=== PATIENT | male | born 1950 | race Hispanic/Latino ===

== ENCOUNTER 2018-11-04 17:16 | Inpatient (IN) | payer BC ==
[2018-11-04] MEDS ORDERED: Mag-Al 1200 mg/1200 mg/30 ML UDCUP ONE (17:42)
[2018-11-04] MEDS ORDERED: Lidocaine Viscous Sol 2% 15 ml UD Cup ONE (17:42)
[2018-11-04 18:05] LABS: #Basophils 0.1 thou/uL (0.0-0.2); #Eosinphils 0.3 thou/uL (0.0-0.7); #Lymphocytes 2.2 thou/uL (1.20-3.40); #Monocytes 0.6 thou/uL (0.11-0.59); #Neutrophils 5.3 thou/uL (1.40-6.50); %Basophils 0.9 % (0.0-1.0); %Eosinophils 3.6 % (0.0-10.0); %Lymphocytes 26.1 % (21.0-51.0); %Monocytes 6.8 % (0.0-10.0); %Neutrophils 62.7 % (42.0-75.0); Mean Corpuscular HGB CONC 34.6 g/dL (32.0-36.0); Mean Corpuscular Hemoglobin 31.4 pg (27.0-31.0); Mean Corpuscular Volume 90.7 fL (78.0-98.0); Mean Platelet Volume 8.2 fL (7.4-10.4); Platelet Count 214 thou/uL (130-400); RBC Distribution Width 12.4 % (11.5-14.5); Red Blood Cell (RBC) Count 3.81 mill/uL (4.70-6.10); White Blood Cell (WBC) Count 8.4 thou/uL (4.8-10.8)
--- NOTE | 2018-11-04 18:10 | RAD ---
PORTABLE CHEST: 11/04/2018 PROVIDED CLINICAL HISTORY: Chest pain. FINDINGS: The cardiac silhouette is within normal limits. Vascular calcification involves the aortic arch. No focal consolidation, pleural fluid, or pneumothorax apparent. IMPRESSION: No evidence for an acute cardiopulmonary process. POS: TERE
[2018-11-04 18:19] LABS: ALT (SGPT) 15 U/L (8-55); AST (SGOT) 16 U/L (5-34); Albumin 3.7 g/dL (3.4-4.8); Alkaline Phosphatase 73 U/L (40-150); Anion Gap 15 mmol/L (10-20); BUN (Urea Nitrogen) 25 mg/dL (8.4-25.7); Bilirubin, Total 0.3 mg/dL (0.2-1.2); Calc. Creatinine Clearance 0 mL/min (70-130); Calcium 9.1 mg/dL (7.8-10.44); Carbon Dioxide 18 mmol/L (23-31); Chloride 106 mmol/L (98-107); Estimated GFR-MDRD 27; Globulin 3.2 g/dL (2.4-3.5); Glucose 186 mg/dL (80-115); Lipase 28 U/L (8-78); Potassium 3.8 mmol/L (3.5-5.1); Protein, Total 6.9 g/dL (5.8-8.1); Sodium 135 mmol/L (136-145)
[2018-11-04 20:06] LABS: Troponin I 0.094 ng/mL (< 0.028)
[2018-11-04 22:16] LABS: Troponin I 0.583 ng/mL (< 0.028)
[2018-11-04] MEDS ORDERED: Nitroglycerin 0.4 MG TAB (25 Tab Bottle) SL PRN (23:23)
[2018-11-04] MEDS ORDERED: Acetaminophen 325 MG TAB PO PRN (23:25)
[2018-11-04] MEDS ORDERED: Heparin 5,000 UNITS/ML VIAL SC SCH (23:30)
[2018-11-04] MEDS ORDERED: Dextrose 50% Abboject 50 ML SYRINGE SLOW IVP PRN (23:35)
[2018-11-04] MEDS ORDERED: Dextrose 5% in Water 1,000 ML IV PRN (23:35)
[2018-11-04] MEDS ORDERED: HumaLOG 300 UNITS/3 ML VIAL SC PRN (23:35)
[2018-11-05] MEDS ORDERED: Nitroglycerin 2% Ointment 1 INCH/1 GM Packet ONE ×2 (01:21→14:36)
[2018-11-05] MEDS: Nitroglycerin 2% Ointment 1 INCH/1 GM Packet TOP SCH ×2 (01:30→14:41)
--- NOTE | 2018-11-05 03:41 | HP ---
CHIEF COMPLAINT: Chest pain. HISTORY OF PRESENT ILLNESS: This patient is a 67-year-old male with a history of some chronic kidney disease, who was at work today, he is finishing waiting check at around 3 p.m. when he had the onset of some mild chest discomfort. The patient went home and started cooking, and his pain became significantly worse. He described it as central parasternal chest pain. He states that it increased to 10/10. His reported that he looked clammy. He reported shortness of breath, some generalized diaphoresis. Denied nausea or vomiting, and he described the pain as a squeezing sensation. There was no specific radiation. He was actually fairly resistant to his calling an ambulance, but ultimately relented. The patient received aspirin 81 mg at home. Subsequently, received 3 more in the ambulance en route. He also received sublingual nitroglycerin with no relief. However, once he arrived in the emergency department, he received a GI cocktail and states that his pain subsequently went away and is currently at zero. REVIEW OF SYSTEMS: The patient has some urinary frequency and nocturia x2-3, but no dysuria. He also has some modest deliberate weight loss. He and his argue over whether he has chronic diarrhea or not. All other systems were reviewed. All pertinent positives and negatives noted in the history of present illness. PAST MEDICAL HISTORY: Notable for hypothyroidism, hyperlipidemia, hypertension, chronic kidney disease stage 3, history of hepatitis C which was treated and apparently resolved. PAST SURGICAL HISTORY: None. SOCIAL HISTORY: The patient reports that he smokes 1 pack of cigarettes q.2 weeks. He has 1/2 to 1 beer per day. Denies drugs. He is . He is full code and his is his surrogate decision maker. FAMILY HISTORY: Mother had diabetes. Father at 94 with no major medical problems. ALLERGIES: NONE. MEDICATIONS: 1. Hydralazine 100 mg p.o. t.i.d. 2. Amlodipine 10 mg p.o. daily. 3. Metoprolol 100 mg b.i.d. 4. Levothyroxine 75 mcg daily. 5. Atorvastatin 40 mg daily. PHYSICAL EXAMINATION: VITAL SIGNS: BP 121/65, pulse 74, respirations 14, O2 saturation 95% on room air. GENERAL APPEARANCE: Age-appropriate male. He is in no distress. He is awake, alert, oriented, pleasant, and cooperative. HEENT: PERRL. No OP lesions. NECK: Supple and symmetric with no lymphadenopathy, JVD, or carotid bruits. HEART: Regular rate and rhythm without murmurs, gallops, or rubs. LUNGS: Clear to auscultation bilaterally with good chest wall expansion and air exchange. ABDOMEN: Soft, nontender, and nondistended. Positive bowel sounds. No masses. No organomegaly. EXTREMITIES: No cyanosis, clubbing, or edema. NEUROLOGIC: The patient is intact. He is normally cognitive and moves all extremities spontaneously with no evidence of focal deficits. PSYCHIATRIC: The patient has normal affect and behavior. SKIN: Normal turgor, warm, and dry. LABORATORY DATA: White count 8.4, hemoglobin 12.0, platelets 214. Sodium 135, potassium 3.8, chloride 106, CO2 of 18, BUN 25, creatinine 2.46, glucose 186, calcium 9.1, ALT is 16, ALT is 15. Troponin initially 0.01, subsequent 0.094, 3rd is 0.583. Albumin 3.7. Chest x-ray is clear. EKG shows some evidence of inferior Q-waves with no ischemic changes. He is in sinus rhythm at 71 beats per minute. IMPRESSION AND PLAN: 1. Acute non ST-segment elevation myocardial infarction. The patient had fairly classic symptoms and his troponins are trending upward. We will give a dose of heparin given his renal function. We will keep him n.p.o. after midnight. Keep him on telemetry. Consult Cardiology. He has had adequate dosing of the aspirin at this point. His pain is currently completely resolved. 2. Chronic kidney disease stage 3. His current creatinine is at his baseline. 3. Hyperglycemia. The patient has no history of diabetes. He has multiple blood sugars in the computer going back to 2012, they were all slightly elevated. However, the 186 now is the highest that he has had recorded. We will order serial Accu-Cheks q.a.c. and at bedtime with sliding scale insulin as needed. 4. Hypertension. Continue with the hydralazine, amlodipine, and metoprolol. 5. Hypothyroidism. Continue with the levothyroxine 75 mcg daily. 6. Hyperlipidemia. Continue with atorvastatin. Job ID: [id number]
[2018-11-05 03:55] LABS: Anion Gap 12 mmol/L (10-20); BUN (Urea Nitrogen) 25 mg/dL (8.4-25.7); Calc. Creatinine Clearance 40 mL/min (70-130); Calcium 9.2 mg/dL (7.8-10.44); Carbon Dioxide 21 mmol/L (23-31); Cardiac Risk 4.9 (Less than 4.5); Chloride 109 mmol/L (98-107); Cholesterol 187 mg/dl (< 200 Desired); Estimated GFR-MDRD 31; Glucose 132 mg/dL (80-115); HDL Cholesterol 38 mg/dL (>60 Neg Risk); LDL Cholesterol, Calculated 107 mg/dL; Potassium 4.3 mmol/L (3.5-5.1); Sodium 138 mmol/L (136-145); Triglycerides 212 mg/dL (Less than 150)
[2018-11-05] MEDS: Levothyroxine Sodium 75 MCG TAB PO SCH (05:48)
[2018-11-05] MEDS ORDERED: hydrALAZINE 25 MG TAB ONE (09:00)
[2018-11-05] MEDS: Amlodipine 10 MG TAB PO SCH (09:11)
[2018-11-05] MEDS: hydrALAZINE 25 MG TAB PO SCH ×3 (09:12→21:17)
[2018-11-05] MEDS: Metoprolol Tartrate 100 MG TAB PO SCH ×2 (09:13→21:18)
[2018-11-05 13:12] LABS: CKMB 89.6 ng/mL (0-6.6)
--- NOTE | 2018-11-05 13:12 | PDOC.PN ---
- Subjective Encounter Start Date: 11/05/18 Encounter Start Time: 11:50 -: old records requested/rev Pt seen and exmained, chart reviewe din its entirety, this is my first visit iwth this patient follow up for possible NSTEMI, CP. no more symptos, no trop since admit, pt NPO waiting for cards eval. NO F/C, no N/V/D/C, no CP, no SOB all systems reviewed and neg x as above - Objective Resuscitation Status - Order Detail: 11/04/18 23:25 Resuscitation Status Routine Resuscitation Status: FULL: Full Resuscitation MAR Reviewed: Yes Vital Signs & Weight: Vital Signs (12 hours) Temp Pulse Resp BP BP Pulse Ox 11/05/18 11:34 98 F 59 L 14 133/74 97 11/05/18 09:12 65 120/66 11/05/18 09:11 76 120/66 11/05/18 05:50 98.3 F 63 22 H 156/82 H 98 11/05/18 04:23 98.2 F 66 19 137/75 96 11/05/18 04:00 97 Weight Weight 184 lb Result Diagrams: 11/04/18 17:51 11/05/18 03:26 Additional Labs: Accuchecks 11/05/18 11/05/18 11:29 05:51 POC Glucose 109 102 Radiology Reviewed by me: Yes Phys Exam - Physical Examination Constitutional: NAD HEENT: PERRLA, moist MMs, sclera anicteric, oral pharynx no lesions Neck: no nodes, no JVD, supple, full ROM Respiratory: no wheezing, no rales, no rhonchi, clear to auscultation bilateral Cardiovascular: RRR, no significant murmur, no rub Gastrointestinal: soft, non-tender, no distention, positive bowel sounds Musculoskeletal: no edema, pulses present Neurological: non-focal, normal sensation, moves all 4 limbs Lymphatic: no nodes Psychiatric: normal affect, A&O x 3 Skin: no rash, normal turgor, cap refill <2 seconds Dx/Plan (1) NSTEMI (non-ST elevated myocardial infarction) Code(s): I21.4 - NON-ST ELEVATION (NSTEMI) MYOCARDIAL INFARCTION Status: Acute Comment: trop up to 30. start heparin gtt due to CKD, follow up on card. echo ordered (2) DM2 (diabetes mellitus, type 2) Status: Acute Qualifiers: Diabetes mellitus long term care pharmacist insulin use: without usp use Diabetes mellitus complication status: with circulatory complication Diabetes mellitus complication detail: with other circulatory complications Qualified Code(s): E11.59 - Type 2 diabetes mellitus with other circulatory complications (3) HTN (hypertension) Code(s): I10 - ESSENTIAL (PRIMARY) HYPERTENSION Status: Chronic Qualifiers: Hypertension type: essential hypertension Qualified Code(s): I10 - Essential (primary) hypertension (4) HLD (hyperlipidemia) Code(s): E78.5 - HYPERLIPIDEMIA, UNSPECIFIED Status: Chronic Qualifiers: Hyperlipidemia type: unspecified Qualified Code(s): E78.5 - Hyperlipidemia , unspecified (5) CKD (chronic kidney disease), stage III Code(s): N18.3 - CHRONIC KIDNEY DISEASE, STAGE 3 (MODERATE) Status: Chronic (6) Hypothyroidism Code(s): E03.9 - HYPOTHYROIDISM, UNSPECIFIED Status: Chronic Qualifiers: Hypothyroidism type: unspecified Qualified Code(s): E03.9 - Hypothyroidism , unspecified - Plan cont current plan of care, plan discussed w/ family * . keep NPO, heparin gtt, echo, follow up on cards. hard to cath due to CKD and Cr 2.1
[2018-11-05] MEDS ORDERED: Heparin 25,000 units/D5W 0 ML ONE (13:45)
[2018-11-05] MEDS ORDERED: Heparin 1,000 UNITS/ML VIAL ONE (13:45)
[2018-11-05] MEDS ORDERED: Heparin 25,000 units/D5W 500 ML ONE (13:51)
[2018-11-05 14:12] LABS: INR-International Normal Ratio 1.1; PTT 27.6 SEC (22.9-36.1); Prothrombin Time 13.9 SEC (12.0-14.7)
[2018-11-05 18:14] VITALS: BMI 27.7
[2018-11-05] MEDS: Atorvastatin Calcium 40 MG TAB PO SCH (21:17)
--- NOTE | 2018-11-05 21:29 | CON ---
DATE OF CONSULTATION: REASON FOR CONSULTATION: Elevated troponin. Dr. Flynn is a provider. HISTORY OF PRESENT ILLNESS: Mr. Estrella is a pleasant 67-year-old gentleman, who has not been seen or evaluated by Cardiology in the past. He has a history of hypertension and borderline diabetes. He presented with chest pain that began as mild. It then was severe. He states the pain lasted for a total of 4 hours. It began yesterday at 3:00 p.m. and subsided completely by 9:00 p.m. yesterday evening. No previous history of underlying coronary artery disease. He does have a history of chronic renal insufficiency. PAST MEDICAL HISTORY: As described above including hyperlipidemia, previous history of hepatitis C. SOCIAL HISTORY: No current tobacco use. Positive alcohol use. No current drug use. He is currently . ALLERGIES: NONE. MEDICATIONS: 1. Hydralazine. 2. Amlodipine. 3. Metoprolol. 4. Levothyroxine. 5. Atorvastatin. REVIEW OF SYSTEMS: A 10-point review of systems is reviewed and as above, otherwise negative. PHYSICAL EXAMINATION: GENERAL: The patient is a pleasant male, who is in no acute distress. The patient appears their stated age. VITAL SIGNS: Blood pressure 133/74, pulse 89, temperature 98. NEUROLOGIC: The patient is alert and oriented x3 with no focal neurologic deficits. HEENT: Sclerae without icterus. Mouth has moist mucous membranes with normal pallor. NECK: No JVD. Carotid upstroke brisk. No bruits bilaterally. LUNGS: Clear to auscultation with unlabored respirations. BACK: No scoliosis or kyphosis. CARDIAC: Regular rate and rhythm with normal S1 and S2. No S3 or S4 noted. No significant rubs, murmurs, thrills, or gallops noted throughout the precordium. PMI is not displaced. There is no parasternal heave. ABDOMEN: Soft, nontender, nondistended. No peritoneal signs present. No hepatosplenomegaly. No abnormal striae. EXTREMITIES: 2+ femoral and 2+ dorsalis pedis pulses. No cyanosis, clubbing, or edema. SKIN: No gross abnormalities. Insert a new patient. PERTINENT LABORATORY DATA: Hemoglobin 12.0, creatinine 2.17 with a GFR of 31. CK-MB of 89 with a peak troponin of 36. IMAGING STUDIES: EKG shows normal sinus rhythm with nonspecific ST-T wave changes. IMPRESSION: 1. Unstable angina. 2. Chronic kidney disease. 3. Hypertension. 4. Hyperlipidemia. RECOMMENDATIONS: At this point, Mr. Estrella has been chest pain-free for 12 hours. Heparin IV has been started. At this point, I would recommend coronary angiography with a possible PCI. I discussed proceeding in full detail with Mr. Estrella. Risks include, but not limited to consent. I also discussed drug-coated versus [id number] stent placement. There were no contraindications to proceed if needed. I also discussed the risks of contrast nephropathy. We will hydrate the patient with IV fluids overnight. There is a risk of contrast nephropathy, but also risk of repeat [place]. At this point, I would like to think about his options. He will let us know if he would like to proceed. Otherwise, continue beta-richard therapy and statin treatment in addition to IV heparin and IV fluids. Job ID: [id number]
[2018-11-05] MEDS ORDERED: Heparin 25,000 units/D5W 500 ML IV SCH (22:00)
[2018-11-05] MEDS ORDERED: Heparin 10,000 UNITS/ 10 ML VIAL SLOW IVP SCH (22:00)
[2018-11-05] MEDS ORDERED: Communication Order-Pharmacy FS SCH (22:15)
[2018-11-06] MEDS: Sodium Chloride 0.9% 1,000 ML IV SCH ×4 (00:44→20:21)
[2018-11-06] MEDS: Nitroglycerin 2% Ointment 1 INCH/1 GM Packet TOP SCH ×2 (00:44→13:10)
[2018-11-06 04:25] LABS: Critical Call Chem Troponin I RESULT DECREASING; Troponin I 24.352 ng/mL (< 0.028)
[2018-11-06] MEDS: hydrALAZINE 25 MG TAB PO SCH ×3 (05:59→20:19)
[2018-11-06] MEDS: Metoprolol Tartrate 100 MG TAB PO SCH ×2 (06:01→20:20)
[2018-11-06] MEDS: Levothyroxine Sodium 75 MCG TAB PO SCH (06:01)
[2018-11-06] MEDS: Amlodipine 10 MG TAB PO SCH (06:02)
[2018-11-06] MEDS ORDERED: Heparin 0 ML ONE (06:53)
[2018-11-06 06:56] LABS: Anion Gap 14 mmol/L (10-20); BUN (Urea Nitrogen) 26 mg/dL (8.4-25.7); Calc. Creatinine Clearance 38 mL/min (70-130); Calcium 9.3 mg/dL (7.8-10.44); Carbon Dioxide 21 mmol/L (23-31); Chloride 109 mmol/L (98-107); Estimated GFR-MDRD 29; Glucose 115 mg/dL (80-115); Potassium 4.3 mmol/L (3.5-5.1); Sodium 140 mmol/L (136-145)
[2018-11-06 11:28] LABS: Anion Gap 9 mmol/L (10-20); BUN (Urea Nitrogen) 24 mg/dL (8.4-25.7); Calc. Creatinine Clearance 40 mL/min (70-130); Carbon Dioxide 23 mmol/L (23-31); Chloride 110 mmol/L (98-107); Estimated GFR-MDRD 31; Glucose 131 mg/dL (80-115); Potassium 4.4 mmol/L (3.5-5.1); Sodium 138 mmol/L (136-145)
[2018-11-06 12:15] LABS: Anion Gap 9 mmol/L (10-20); BUN (Urea Nitrogen) 24 mg/dL (8.4-25.7); Calc. Creatinine Clearance 40 mL/min (70-130); Calcium 9.1 mg/dL (7.8-10.44); Carbon Dioxide 24 mmol/L (23-31); Chloride 110 mmol/L (98-107); Estimated GFR-MDRD 31; Glucose 129 mg/dL (80-115); Potassium 4.4 mmol/L (3.5-5.1); Sodium 139 mmol/L (136-145)
--- NOTE | 2018-11-06 12:33 | PDOC.PN ---
- Subjective Encounter Start Date: 11/06/18 Encounter Start Time: 12:32 Mr. Estrella was seen today in follow-up of NSTEMI. He does not have any complaints. He denies chest pain or shortness of breath. - Objective Resuscitation Status - Order Detail: 11/04/18 23:25 Resuscitation Status Routine Resuscitation Status: FULL: Full Resuscitation MAR Reviewed: Yes Vital Signs & Weight: Vital Signs (12 hours) Temp Pulse Resp BP BP Pulse Ox 11/06/18 12:00 97.7 F 60 18 136/76 97 11/06/18 07:00 98.1 F 61 18 157/76 H 96 11/06/18 06:02 64 136/76 11/06/18 05:59 64 136/76 11/06/18 04:00 97.8 F 64 18 136/76 96 Weight Weight 182 lb I&O: 11/05/18 11/06/18 11/07/18 06:59 06:59 06:59 Intake Total 1275 Output Total 650 Balance 625 Result Diagrams: 11/04/18 17:51 11/06/18 11:43 Additional Labs: Accuchecks 11/06/18 11/06/18 10:39 06:06 POC Glucose 118 H 140 H Phys Exam - Physical Examination HEENT: PERRLA Respiratory: no wheezing, no rales, no rhonchi, clear to auscultation bilateral Cardiovascular: RRR, no significant murmur, no rub Gastrointestinal: soft, non-tender, no distention, positive bowel sounds Musculoskeletal: no edema, pulses present Dx/Plan (1) NSTEMI (non-ST elevated myocardial infarction) Code(s): I21.4 - NON-ST ELEVATION (NSTEMI) MYOCARDIAL INFARCTION Status: Acute Comment: trop up to 30. start heparin gtt due to CKD, follow up on card. echo ordered (2) DM2 (diabetes mellitus, type 2) Status: Acute Qualifiers: Diabetes mellitus remote computer terminal operator insulin use: without remote computer terminal operator use Diabetes mellitus complication status: with circulatory complication Diabetes mellitus complication detail: with other circulatory complications Qualified Code(s): E11.59 - Type 2 diabetes mellitus with other circulatory complications (3) HLD (hyperlipidemia) Code(s): E78.5 - HYPERLIPIDEMIA, UNSPECIFIED Status: Chronic Qualifiers: Hyperlipidemia type: unspecified Qualified Code(s): E78.5 - Hyperlipidemia , unspecified (4) HTN (hypertension) Code(s): I10 - ESSENTIAL (PRIMARY) HYPERTENSION Status: Chronic Qualifiers: Hypertension type: essential hypertension Qualified Code(s): I10 - Essential (primary) hypertension (5) CKD (chronic kidney disease), stage III Code(s): N18.3 - CHRONIC KIDNEY DISEASE, STAGE 3 (MODERATE) Status: Chronic - Plan * NSTEMI- patient is clinically stable- continue medical management including the heparin drip * He was unable to have the Cardiac cath due to his renal function * DM- blood glucose is stable * HTN-.blood pressure is stable
--- NOTE | 2018-11-06 19:01 | PDOC.CTH ---
Cardiology Progress Note - Subjective No symptoms. - Objective Vital Signs Temp Pulse Resp BP Pulse Ox 11/06/18 15:18 98.6 F 66 18 150/74 H 97 11/06/18 15:13 60 11/06/18 12:00 97.7 F 60 18 136/76 97 Weight 182 lb 11/05/18 11/06/18 11/07/18 06:59 06:59 06:59 Intake Total 1275 240 Output Total 650 Balance 625 240 - Physical Examination General/Neuro: alert & oriented x3, NAD Neck: carotid US brisk, no JVD present Lungs: CTA, unlabored respirations Heart: PMI normal, RRR Abdomen: NT/ND, soft Extremities: + femoral B - Labs Result Diagrams: 11/04/18 17:51 11/06/18 11:43 Troponin/CKMB CK-MB (CK-2) 89.6 ng/mL (0-6.6) H* 11/05/18 12:06 Troponin I 24.352 ng/mL (< 0.028) H* 11/06/18 03:47 - Assessment/Plan NQWMI HTN CKD Pt creatinine unchanged over last 12 hours of hydration Continue with IV hydration for now Plan on angio in am Stop heparin at
[2018-11-06] MEDS: Atorvastatin Calcium 40 MG TAB PO SCH (20:20)
[2018-11-07] MEDS: Nitroglycerin 2% Ointment 1 INCH/1 GM Packet TOP SCH ×2 (00:27→11:41)
[2018-11-07] MEDS: Metoprolol Tartrate 100 MG TAB PO SCH ×2 (05:57→21:03)
[2018-11-07] MEDS: hydrALAZINE 25 MG TAB PO SCH ×3 (05:57→21:04)
[2018-11-07] MEDS: Sodium Chloride 0.9% 1,000 ML IV SCH ×5 (05:58→23:24)
[2018-11-07] MEDS: Levothyroxine Sodium 75 MCG TAB PO SCH (05:58)
[2018-11-07] MEDS: Amlodipine 10 MG TAB PO SCH (05:58)
[2018-11-07 06:25] LABS: Anion Gap 15 mmol/L (10-20); BUN (Urea Nitrogen) 28 mg/dL (8.4-25.7); Calc. Creatinine Clearance 40 mL/min (70-130); Calcium 8.8 mg/dL (7.8-10.44); Carbon Dioxide 16 mmol/L (23-31); Chloride 111 mmol/L (98-107); Estimated GFR-MDRD 31; Glucose 108 mg/dL (80-115); Sodium 138 mmol/L (136-145)
[2018-11-07] MEDS ORDERED: Fentanyl 100 MCG/2 ML VIAL ONE (07:40)
[2018-11-07] MEDS ORDERED: Midazolam HCl 2 mg/2 ml Vial ONE (07:41)
[2018-11-07] MEDS ORDERED: Adenosine 6 MG/2 ML VIAL ONE (07:52)
[2018-11-07] MEDS ORDERED: Verapamil 5 MG/2 ML VIAL ONE (07:52)
[2018-11-07] MEDS ORDERED: Nitroglycerin 100MG/250ML BOT 250 ML ONE (07:52)
[2018-11-07] MEDS ORDERED: Nitroglycerin 0.4 MG TAB (25 Tab Bottle) SL PRN (08:02)
[2018-11-07] MEDS ORDERED: traMADol HCl 50 MG TAB PO PRN (08:02)
[2018-11-07] MEDS ORDERED: Acetaminophen/Codeine 30-300mg Tablet PO PRN ×2 (08:02)
[2018-11-07] MEDS ORDERED: Sodium Chloride 0.9% 200 ML IV SCH (08:15)
--- NOTE | 2018-11-07 10:01 | PDOC.PN ---
- Subjective Encounter Start Date: 11/07/18 Encounter Start Time: 10:00 follow up for NSTEMI, CKD 3, appreciate cardiology input No CP, no SOB, no F/C, no N/V/D/C, all systesm reviewed and neg x as above PTCA earlier, 99% mid LAD and 90 RCA lesion. lots of calcium, needs likely transfer to [facility] vs CABG, awaiting cardiology recs - Objective Resuscitation Status - Order Detail: 11/04/18 23:25 Resuscitation Status Routine Resuscitation Status: FULL: Full Resuscitation MAR Reviewed: Yes Vital Signs & Weight: Vital Signs (12 hours) Temp Pulse Resp BP BP BP Pulse Ox 11/07/18 08:28 97.7 F 58 L 16 144/69 H 98 11/07/18 05:58 61 152/72 H 11/07/18 05:57 61 152/72 H 11/07/18 04:40 97.7 F 62 16 152/77 H 97 Weight Weight 181 lb 14.4 oz I&O: 11/06/18 11/07/18 11/08/18 06:59 06:59 06:59 Intake Total 1275 3342 Output Total 650 1950 Balance 625 1392 Result Diagrams: 11/04/18 17:51 11/07/18 05:03 Additional Labs: Accuchecks 11/07/18 11/06/18 11/06/18 05:49 20:24 16:55 POC Glucose 125 H 95 110 11/06/18 10:39 POC Glucose 118 H Phys Exam - Physical Examination Constitutional: NAD HEENT: PERRLA, moist MMs, sclera anicteric, oral pharynx no lesions Neck: no nodes, no JVD, supple, full ROM Respiratory: no wheezing, no rales, no rhonchi, clear to auscultation bilateral Cardiovascular: RRR, no significant murmur, no rub Gastrointestinal: soft, non-tender, no distention, positive bowel sounds Musculoskeletal: no edema, pulses present Neurological: non-focal, normal sensation, moves all 4 limbs Lymphatic: no nodes Psychiatric: normal affect, A&O x 3 Skin: no rash, normal turgor, cap refill <2 seconds Dx/Plan (1) NSTEMI (non-ST elevated myocardial infarction) Code(s): I21.4 - NON-ST ELEVATION (NSTEMI) MYOCARDIAL INFARCTION Status: Acute Comment: trop up to 30. start heparin gtt due to CKD, follow up on card. echo reviewed. 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 Diabetes mellitus complication status: with circulatory complication Diabetes mellitus complication detail: with other circulatory complications Qualified Code(s): E11.59 - Type 2 diabetes mellitus with other circulatory complications (3) HTN (hypertension) Code(s): I10 - ESSENTIAL (PRIMARY) HYPERTENSION Status: Chronic Qualifiers: Hypertension type: essential hypertension Qualified Code(s): I10 - Essential (primary) hypertension (4) HLD (hyperlipidemia) Code(s): E78.5 - HYPERLIPIDEMIA, UNSPECIFIED Status: Chronic Qualifiers: Hyperlipidemia type: unspecified Qualified Code(s): E78.5 - Hyperlipidemia , unspecified (5) CKD (chronic kidney disease), stage III Code(s): N18.3 - CHRONIC KIDNEY DISEASE, STAGE 3 (MODERATE) Status: Chronic (6) Hypothyroidism Code(s): E03.9 - HYPOTHYROIDISM, UNSPECIFIED Status: Chronic Qualifiers: Hypothyroidism type: unspecified Qualified Code(s): E03.9 - Hypothyroidism , unspecified - Plan * .
[2018-11-07] MEDS ORDERED: Iopamidol 370 76% 100 ML VIAL ONE (15:40)
[2018-11-07] MEDS ORDERED: Communication Order-Pharmacy FS SCH (16:44)
[2018-11-07] MEDS ORDERED: Diazepam 5 MG TAB PO PRN (16:44)
[2018-11-07] MEDS: Atorvastatin Calcium 40 MG TAB PO SCH (21:05)
--- NOTE | 2018-11-07 22:57 | CON ---
DATE OF CONSULTATION: 11/07/2018 HISTORY OF PRESENT ILLNESS: Mr. Estrella is a very pleasant 67-year-old gentleman, referred by Dr. Martinez for coronary artery bypass grafting. He presented 2 days ago to the emergency department with a history of chest pain that began earlier in the day. It eventually got to the point where he could not stand it anymore and came to the emergency department. As part of his workup, he had a troponin checked, which peaked at 36.5. His creatinine was in the 2 range, which is where he lives currently. He was hydrated and underwent cardiac catheterization today. Catheterization reveals a near occlusion of his LAD and proximal right coronary artery. He also has near occlusion of acute marginal. Bypassable targets included LAD, acute marginal, and distal right coronary artery. The circumflex system is without significant disease. Ejection fraction is approximately 35%. PAST MEDICAL HISTORY: 1. Hypertension. 2. Borderline diabetes. 3. Dyslipidemia. 4. Previous history of hepatitis C-she has been treated and cured from hepatitis C. PAST SURGICAL HISTORY: None. CURRENT MEDICATIONS: Noted. ALLERGIES: NONE. SOCIAL HISTORY: He occasionally smokes a cigarette, but nothing consistent. He is and accompanied by his for discussion. 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 REVIEW OF SYSTEMS: A 10-point review of systems is performed and is negative except as above. PHYSICAL EXAMINATION: GENERAL: This is a well-developed, well-nourished gentleman, resting comfortably in bed. VITAL SIGNS: Height 5 feet 8 inches, weight is 181 pounds, BSA is 1.99. Temperature is 98.0, pulse is 69 and regular, blood pressure 154/84. HEENT: Sclerae nonicteric. Pupils are equal and round bilaterally. NECK: Supple without adenopathy. There are no carotid bruits. CHEST: Clear to auscultation bilaterally. HEART: Rhythm is regular. There are no murmurs. ABDOMEN: Soft and nontender. There are no masses palpable. EXTREMITIES: He has no edema. VASCULAR: There is palpable carotid, radial, femoral, dorsalis pedis, and posterior tibial pulses bilaterally. PSYCHIATRIC: The patient is awake, alert, and oriented to person, place, and time. VENOUS: There are no venous varicosities. The patient has no history of venous ablation procedures. LABORATORY DATA: Of note, creatinine is in the 2 range, which is where it is chronically. He has been followed by Dr. Manzano for number of years. Potassium is 4.0. Hemoglobin 12.0, platelet count is 214,000. ASSESSMENT AND PLAN: This is a pleasant 67-year-old gentleman with non-ST elevation myocardial infarction and severe two-vessel disease on cardiac angiography. His ventricular ejection fraction is approximately 35%. Bypassable targets included left anterior descending, acute marginal, and distal right coronary artery. Risks, benefits, and options have been outlined with the patient who is agreeable to proceed. Job ID: [id number]
[2018-11-08] MEDS: Nitroglycerin 2% Ointment 1 INCH/1 GM Packet TOP SCH (00:36)
[2018-11-08] MEDS ORDERED: CEFAZOLIN 2 GM/50 ML-DEXTROSE 2 GM in Premix Bag 1 BAG IVPB SCH (03:00)
[2018-11-08] MEDS: Metoprolol Tartrate 100 MG TAB PO SCH (04:54)
[2018-11-08] MEDS: Levothyroxine Sodium 75 MCG TAB PO SCH (04:54)
[2018-11-08] MEDS: Sodium Chloride 0.9% 1,000 ML IV SCH (04:55)
[2018-11-08] MEDS ORDERED: CEFAZOLIN 2 GM/50 ML BAG ONE (06:15)
[2018-11-08] MEDS ORDERED: Albumin 5% 500 ML ONE (06:27)
[2018-11-08] MEDS ORDERED: Midazolam HCl 2 mg/2 ml Vial ONE (06:33)
[2018-11-08] MEDS ORDERED: Dexmedetomidine 200 MCG/2 ML VIAL ONE (06:33)
[2018-11-08] MEDS ORDERED: Vecuronium 10 MG VIAL ONE ×2 (06:33→11:10)
[2018-11-08] MEDS ORDERED: Fentanyl 100 MCG/2 ML VIAL ONE (06:33)
[2018-11-08] MEDS ORDERED: Midazolam HCl 5 mg/5 ml Vial ONE (06:33)
[2018-11-08] MEDS ORDERED: Heparin 10,000 UNITS/1 ML VIAL 30,000 UNITS in Sodium Chloride 0.9% 1,000 ML FS SCH (06:45)
[2018-11-08] MEDS ORDERED: Dexamethasone 4 mg/ml Vial ONE (07:03)
[2018-11-08] MEDS ORDERED: Bupivacaine HCl 0.5%/Epinephrine 1:200,000/PF 30 ml Vial ONE (07:03)
[2018-11-08] MEDS ORDERED: Insulin Regular 300 UNITS/3 ML VIAL ONE (08:33)
[2018-11-08] MEDS ORDERED: Cardioplegic Soln 1,000 ML BAG ONE (11:10)
[2018-11-08] MEDS ORDERED: Ondansetron PF 4 MG/2 ML Vial ONE (11:10)
[2018-11-08] MEDS ORDERED: Heparin 30,000 units/30 ml VIAL ONE (11:10)
[2018-11-08] MEDS ORDERED: Dexamethasone 20 MG/5 ML VIAL ONE (11:10)
[2018-11-08] MEDS ORDERED: Heparin 5,000 UNITS/ML VIAL ONE (11:10)
[2018-11-08] MEDS ORDERED: Thrombin 5000 UNITS/5 ML VIAL ONE (11:10)
[2018-11-08] MEDS ORDERED: Magnesium 5 GM/10 ML VIAL ONE (11:10)
[2018-11-08] MEDS ORDERED: Nitroglycerin 50 MG/250 ML BOT ONE (11:10)
[2018-11-08] MEDS ORDERED: Aminocaproic Acid 5 GM/20 ML VIAL ONE (11:10)
[2018-11-08] MEDS ORDERED: Sodium Bicarb 50 MEQ/50 ML VIAL ONE (11:10)
[2018-11-08] MEDS ORDERED: Lidocaine 2% PF 100 mg/5 ml Syringe ONE (11:10)
[2018-11-08] MEDS ORDERED: Mannitol 12.5 GM/50 ML ONE (11:10)
[2018-11-08] MEDS ORDERED: PHENYLEPHRINE-NS 100 MCG/ML 10 ML SYRINGE ONE (11:10)
[2018-11-08] MEDS ORDERED: Protamine Sulfate 250 MG/25 ML VIAL ONE (11:10)
[2018-11-08] MEDS ORDERED: ePHEDrine/0.9% NaCl/PF SYRINGE 50 mg/10 ml ONE (11:10)
[2018-11-08] MEDS ORDERED: Glycopyrrolate 0.2 MG/ML 5 ML SYRINGE ONE (11:10)
[2018-11-08] MEDS ORDERED: Papaverine 60 MG/2 ML VIAL ONE (11:10)
[2018-11-08] MEDS ORDERED: Ketorolac Tromethamine 30 MG/ML VIAL ONE (11:10)
[2018-11-08] MEDS ORDERED: Potassium Chloride 60 MEQ/30 ML VIAL ONE (11:10)
[2018-11-08] MEDS ORDERED: Albumin 25% 25 GM/100 ML BOT ONE (11:10)
[2018-11-08] MEDS ORDERED: Calcium Chloride 1 GM/10 ML Abboject SYRINGE ONE (11:10)
[2018-11-08] MEDS ORDERED: Post-Op Insulin Drip Protocol IVPB ONE (11:15)
[2018-11-08] MEDS ORDERED: Norepinephrine 8 MG/0.9% NS 250 ML IVPB PRN (11:15)
[2018-11-08] MEDS ORDERED: Hetastarch 6% 500 ML 500 ML IVPB PRN (11:15)
[2018-11-08] MEDS ORDERED: CEFAZOLIN/Water 2 GM/20 ML SYRINGE SLOW IVP SCH (11:15)
[2018-11-08] MEDS ORDERED: D5 1/2 NS w/20 mEq KCL 1,000 ML IV SCH (11:15)
[2018-11-08] MEDS ORDERED: Mag-Al 1200 mg/1200 mg/30 ML UDCUP PO PRN (11:15)
[2018-11-08] MEDS ORDERED: hydrALAZINE 20 MG/ML VIAL SLOW IVP PRN (11:15)
[2018-11-08] MEDS ORDERED: Nitroglycerin 50 MG/250 ML BOT 250 ML IVPB PRN (11:15)
[2018-11-08] MEDS ORDERED: Fentanyl 100 MCG/2 ML VIAL SLOW IVP PRN ×2 (11:15)
[2018-11-08] MEDS ORDERED: Bisacodyl 5 MG TAB PO PRN (11:15)
[2018-11-08] MEDS ORDERED: Guaifenesin DM 100-10/5 ML UDCUP PO PRN (11:15)
[2018-11-08] MEDS ORDERED: Acetaminophen 325 MG TAB PO PRN (11:15)
[2018-11-08] MEDS ORDERED: Potassium Chloride 20 MEQ/100 ML PREMIX BAG IVPB PRN (11:15)
[2018-11-08] MEDS ORDERED: Bisacodyl 10 MG SUPP PR PRN (11:15)
[2018-11-08] MEDS ORDERED: Promethazine HCl 25 MG/ML VIAL IM PRN (11:15)
[2018-11-08] MEDS ORDERED: Morphine 2 MG/ML SYRINGE SLOW IVP PRN (11:15)
[2018-11-08] MEDS ORDERED: Ondansetron PF 4 MG/2 ML Vial IVP PRN (11:15)
[2018-11-08 11:41] LABS: #Eosinphils 0.3 thou/uL (0.0-0.7); #Monocytes 0.5 thou/uL (0.11-0.59); #Neutrophils 12.1 thou/uL (1.40-6.50); %Basophils 0.3 % (0.0-1.0); %Eosinophils 1.9 % (0.0-10.0); %Lymphocytes 13.3 % (21.0-51.0); %Monocytes 3.4 % (0.0-10.0); %Neutrophils 81.1 % (42.0-75.0); Hemoglobin 10.1 g/dL (14.0-18.0); Mean Corpuscular HGB CONC 34.1 g/dL (32.0-36.0); Mean Corpuscular Hemoglobin 31.7 pg (27.0-31.0); Mean Platelet Volume 8.2 fL (7.4-10.4); Platelet Count 172 thou/uL (130-400); RBC Distribution Width 12.6 % (11.5-14.5); Red Blood Cell (RBC) Count 3.19 mill/uL (4.70-6.10); White Blood Cell (WBC) Count 14.9 thou/uL (4.8-10.8)
[2018-11-08 11:53] LABS: INR-International Normal Ratio 1.3; PTT 28.4 SEC (22.9-36.1); Prothrombin Time 16.5 SEC (12.0-14.7)
--- NOTE | 2018-11-08 12:04 | PDOC.PN ---
- Subjective Encounter Start Date: 11/08/18 Encounter Start Time: 11:59 Patient seen and examined, no family at bedside, case d/w nurse - Objective Resuscitation Status - Order Detail: 11/04/18 23:25 Resuscitation Status Routine Resuscitation Status: FULL: Full Resuscitation Vital Signs & Weight: Vital Signs (12 hours) Temp Pulse Resp BP Pulse Ox 11/08/18 11:15 97.8 F 11/08/18 10:35 99 11/08/18 03:06 98.2 F 70 15 145/70 H 97 Weight Weight 180 lb 14.4 oz Most Recent Monitor Data Heart Rate from ECG 61 NIBP 103/65 NIBP BP-Mean 77 Respiration from ECG 13 SpO2 100 I&O: 11/07/18 11/08/18 11/09/18 06:59 06:59 06:59 Intake Total 3342 3263 Output Total 1950 1725 45 Balance 1392 1538 -45 Result Diagrams: 11/08/18 10:41 11/07/18 05:03 Additional Labs: Accuchecks 11/08/18 11/08/18 11/08/18 10:41 09:53 09:28 POC Glucose 112 H 124 H 128 H 11/08/18 11/08/18 11/08/18 09:03 08:31 08:07 POC Glucose 144 H 160 H 137 H 11/08/18 11/07/18 11/07/18 04:50 20:28 16:43 POC Glucose 114 H 98 95 Phys Exam - Physical Examination Constitutional: NAD HEENT: PERRLA, moist MMs, sclera anicteric coarse breath sounds, chest tube in place surgical site C/D/I tachycardia 2/6 JOSÉ ANTONIO Gastrointestinal: soft, non-tender, no distention, positive bowel sounds Musculoskeletal: pulses present, edema present (trace) Dx/Plan (1) DM2 (diabetes mellitus, type 2) Status: Acute Qualifiers: Diabetes mellitus chcf insulin use: without chcf use Diabetes mellitus complication status: with circulatory complication Diabetes mellitus complication detail: with other circulatory complications Qualified Code(s): E11.59 - Type 2 diabetes mellitus with other circulatory complications (2) NSTEMI (non-ST elevated myocardial infarction) Code(s): I21.4 - NON-ST ELEVATION (NSTEMI) MYOCARDIAL INFARCTION Status: Acute Comment: trop up to 30. start heparin gtt due to CKD, follow up on card. echo reviewed. Heprin gtt to stop per cards (3) CKD (chronic kidney disease), stage III Code(s): N18.3 - CHRONIC KIDNEY DISEASE, STAGE 3 (MODERATE) Status: Chronic (4) HLD (hyperlipidemia) Code(s): E78.5 - HYPERLIPIDEMIA, UNSPECIFIED Status: Chronic Qualifiers: Hyperlipidemia type: unspecified Qualified Code(s): E78.5 - Hyperlipidemia , unspecified (5) HTN (hypertension) Code(s): I10 - ESSENTIAL (PRIMARY) HYPERTENSION Status: Chronic Qualifiers: Hypertension type: essential hypertension Qualified Code(s): I10 - Essential (primary) hypertension (6) Hypothyroidism Code(s): E03.9 - HYPOTHYROIDISM, UNSPECIFIED Status: Chronic Qualifiers: Hypothyroidism type: unspecified Qualified Code(s): E03.9 - Hypothyroidism , unspecified - Plan * S/P CABG X 3 * cont current medications * labs in AM * target SBP 120-140mmHg * PT/OT * monitor in ICU for now * no family at bedside
[2018-11-08 12:07] LABS: Anion Gap 12 mmol/L (10-20); BUN (Urea Nitrogen) 25 mg/dL (8.4-25.7); Calc. Creatinine Clearance 40 mL/min (70-130); Calcium 9.3 mg/dL (7.8-10.44); Carbon Dioxide 22 mmol/L (23-31); Chloride 112 mmol/L (98-107); Estimated GFR-MDRD 31; Glucose 115 mg/dL (80-115); Potassium 4.6 mmol/L (3.5-5.1); Sodium 141 mmol/L (136-145)
[2018-11-08] MEDS ORDERED: HUMULIN R 100 UNITS in Sodium Chloride 0.9% 100 ML IVPB SCH (12:17)
[2018-11-08] MEDS ORDERED: Dextrose 5% in Water 1,000 ML IV PRN (12:17)
[2018-11-08] MEDS ORDERED: Dextrose 50% Abboject 50 ML SYRINGE SLOW IVP PRN (12:17)
--- NOTE | 2018-11-08 12:59 | RAD ---
PORTABLE CHEST: DATE: 11/08/2018. PROVIDED CLINICAL HISTORY: Post open heart. FINDINGS: Comparison 11/04/2018. Cardiac and mediastinal silhouette is unchanged in appearance. Median sternoto my changes are seen. Right IJ central line is noted with tip overlying the expected location of righ t atrium. Mediastinal drains are seen. Vascular calcifications are noted. Poor definition to the l eft hemidiaphragm may reflect left basilar pleural and/or parenchymal opacity. No evidence for pneum othorax with limitations due to the supine nature of this study. IMPRESSION: Interval postoperative change as above. POS: TERE
[2018-11-08] MEDS: CEFAZOLIN 2 GM/50 ML-DEXTROSE 2 GM in Premix Bag 1 BAG IVPB SCH ×2 (13:25→21:17)
[2018-11-08 16:24] LABS: Hemoglobin 11.2 g/dL (14.0-18.0)
[2018-11-08] MEDS: HYDROcodone/Acetaminophen 5/325 mg Tablet PO PRN (17:04)
--- NOTE | 2018-11-08 17:06 | EKG ---
Test Reason : POST CABG Blood Pressure : / mmHG Vent. Rate : 070 BPM Atrial Rate : 070 BPM P-R Int : 216 ms QRS Dur : 098 ms QT Int : 440 ms P-R-T Axes : 041 030 064 degrees QTc Int : 475 ms Sinus rhythm with 1st degree A-V block Inferior infarct (cited on or before 04-NOV-2018) Anterior injury pattern * ACUTE MD * Abnormal ECG When compared with ECG of 05-NOV-2018 02:28, (Unconfirmed) AK interval has increased ST elevation now present in Anterior leads QT has lengthened Confirmed by DR. Moreno MEZA ([id number]) on 11/08/2018 5:05:46 PM Referred By: Romel NAILS Confirmed By:DR. Moreno MEZA
[2018-11-08] MEDS: Insulin Regular 300 UNITS/3 ML VIAL SC PRN (17:08)
--- NOTE | 2018-11-08 17:30 | OP ---
DATE OF PROCEDURE: 11/08/2018 PREOPERATIVE DIAGNOSES: Coronary artery disease/hypertension/dyslipidemia/diabetes mellitus. POSTOPERATIVE DIAGNOSES: Coronary artery disease/hypertension/dyslipidemia/diabetes mellitus. PROCEDURES PERFORMED: Coronary artery bypass grafting x3 - 1. Left internal mammary artery to 2.0 mm left anterior descending artery - good conduit and target. 2. Reversed saphenous vein to 2.0 mm right coronary artery - good conduit and target. 3. Reversed saphenous vein to 1.5 mm obtuse marginal - good conduit and target. CO-SURGEONS: Dr. Benjamin Alves and Dr. Derrell Jones. ANESTHESIA: General endotracheal - Dr. Sudeep Solomon. PUMP TIME: 47 minutes. CROSS-CLAMP TIME: 28 minutes. LOW CORE TEMPERATURE: 34 degrees Celsius. RESIDENCE HALL DIRECTOR: Uma Neely. DRAINS: 24-[place]ai[place]ese chest tubes x2. DRIPS: None. TRANSFUSIONS: None. DESCRIPTION OF PROCEDURE: After consent was obtained, the patient was brought to the operating room and placed in supine position on the operating room table. Appropriate central line was placed, and general endotracheal anesthesia was induced. Chest and legs were prepped and draped in usual sterile fashion. Greater saphenous vein was harvested from the left lower extremity from the thigh to the knee utilizing an endoscopic technique. Wound was irrigated and closed in layers. Median sternotomy was performed. Left internal mammary artery was harvested as a pedicle graft. The patient was systemically heparinized. Distal pedicle was divided and infused with papaverine. Thymic fat and pericardium were divided with electrocautery. Pericardial stay sutures were placed. The aortic and atrial cannulations were performed. After adequate heparinization, retrograde prime was performed. The patient was placed on cardiopulmonary bypass. Distal targets were marked. Aortic cross-clamp was applied, and antegrade sanguineous cardioplegic arrest was obtained. 1 L of antegrade cold [place] cardioplegia was given. Topical cold solution was used. Reversed saphenous vein was anastomosed to distal RCA in an end-to-side fashion with running 7-0 Prolene suture. Anastomosis was tested, and it was hemostatic. Reversed saphenous vein was anastomosed to the obtuse marginal in an end-to-side fashion with running 7-0 Prolene suture. Anastomosis was tested, and it was hemostatic. The mammary artery was brought through and then the pericardium was anastomosed to the LAD in an end-to-side fashion with running 7-0 Prolene suture. On release, mammary claims occluding anastomosis and good distal flow. Pedicle was secured with interrupted 6-0 Prolene suture. Cross-clamp was removed, and partial occluding clamp was placed. Saphenous veins were anastomosed to individual punch sites on the aorta with running 6-0 Prolene suture. Partial occluding clamp was removed, and graft was deaired. Anastomoses were inspected for hemostasis which was good. The patient was warmed and weaned from cardiopulmonary bypass. After resumption of sinus rhythm, good hemodynamics, temperature greater than 36.5, bypass was discontinued. Transfusion was given. Protamine was administered. Decannulation was performed, and purse-string suture was secured. 24-Taiwanese chest tubes x2 were placed in the mediastinum. Sternum was treated with vancomycin paste. After adequate hemostasis had been obtained, the sternum was closed with #7 wire. The sternum was treated with platelet rich plasma. Wires were twisted and buried. A pericostal block was performed with 0.5% Marcaine and Decadron. The wounds were then irrigated, treated with platelet poor plasma, and closed in multiple layers. Dermabond was applied to the skin incisions. The patient was awakened, extubated, and transferred to the intensive care unit in stable condition. Needle, sponge, and instrument counts were all reported as correct at the end of the procedure. Job ID: [id number]
[2018-11-08] MEDS: Famotidine/PF 20 mg/2ml Vial SLOW IVP SCH (21:17)
[2018-11-09] MEDS: HYDROcodone/Acetaminophen 5/325 mg Tablet PO PRN ×4 (00:10→20:48)
[2018-11-09 04:33] LABS: #Lymphocytes 1.4 thou/uL (1.20-3.40); #Neutrophils 8.6 thou/uL (1.40-6.50); %Basophils 0.1 % (0.0-1.0); %Eosinophils 0.1 % (0.0-10.0); %Lymphocytes 12.6 % (21.0-51.0); %Monocytes 8.9 % (0.0-10.0); %Neutrophils 78.3 % (42.0-75.0); Hemoglobin 10.2 g/dL (14.0-18.0); Mean Corpuscular HGB CONC 33.6 g/dL (32.0-36.0); Mean Corpuscular Hemoglobin 31.4 pg (27.0-31.0); Mean Corpuscular Volume 93.2 fL (78.0-98.0); Mean Platelet Volume 8.2 fL (7.4-10.4); Platelet Count 168 thou/uL (130-400); RBC Distribution Width 12.7 % (11.5-14.5); Red Blood Cell (RBC) Count 3.24 mill/uL (4.70-6.10)
[2018-11-09 04:43] LABS: Anion Gap 13 mmol/L (10-20); BUN (Urea Nitrogen) 31 mg/dL (8.4-25.7); Calc. Creatinine Clearance 31 mL/min (70-130); Calcium 8.4 mg/dL (7.8-10.44); Carbon Dioxide 20 mmol/L (23-31); Chloride 113 mmol/L (98-107); Estimated GFR-MDRD 23; Glucose 116 mg/dL (80-115); Potassium 4.7 mmol/L (3.5-5.1); Sodium 141 mmol/L (136-145)
[2018-11-09] MEDS: CEFAZOLIN 2 GM/50 ML-DEXTROSE 2 GM in Premix Bag 1 BAG IVPB SCH (05:14)
[2018-11-09] MEDS: D5 1/2 NS w/20 mEq KCL 1,000 ML IV SCH ×2 (08:00→18:04)
[2018-11-09] MEDS: Insulin Regular 300 UNITS/3 ML VIAL SC PRN ×4 (08:30→20:44)
--- NOTE | 2018-11-09 08:57 | RAD ---
FRONTAL RADIOGRAPH CHEST: DATE: 11/09/2018. COMPARISON: 11/08/2018. HISTORY: Evaluate chest following open heart surgery. FINDINGS: Midline sternotomy wires are present. There is increased density in the left lung base suggesting partial consolidation/collapse of the lef t lower lobe and questionable small volume left pleural fluid, stable. No discrete pneumothorax. Dr bonilla catheters overlie the mediastinum inferiorly on the right and the mid left lung zone. Midline sternotomy wires are stable as is a right-sided vascular catheter. IMPRESSION: No significant interval change. POS: TERE
[2018-11-09] MEDS ORDERED: Aspirin 325 MG TAB PO SCH (09:00)
--- NOTE | 2018-11-09 09:07 | CON ---
DATE OF CONSULTATION: REASON FOR CONSULTATION: He is in the ICU, status post coronary artery bypass graft. HISTORY OF PRESENT ILLNESS: A 67-year-old gentleman, who does landscaping, has multiple medical problems. He has renal failure, presented to the hospital with chest pain and shortness of breath. He was found to have coronary artery disease and underwent cardiac artery bypass surgery. PAST MEDICAL HISTORY: Otherwise, pertinent for borderline diabetes, hypertension, hyperlipidemia, hypothyroidism, apparently hepatitis C. PAST SURGICAL HISTORY: None. HOME MEDICATIONS: Has included, 1. Hydralazine 100 three times a day. 2. Metoprolol 100 twice a day. 3. Synthroid 75. 4. Lipitor 40. 5. Amlodipine 10. ALLERGIES: NONE. SOCIAL HISTORY: As noted, facilities maintenance manager. Tobacco, quit smoking two years ago. Alcohol, minimal. REVIEW OF SYSTEMS: Otherwise 10-point negative. PHYSICAL EXAMINATION: VITAL SIGNS: His saturations are 94% on supplemental oxygen. Blood pressure 127/65, pulse 80, respiratory rate 18. CHEST: Minimal crackles at left base. CARDIAC: Normal S1, S2. No gallops. ABDOMEN: Soft. NEUROLOGIC: Unremarkable. LABORATORY DATA: Creatinine is 2.74. His white count is 11,000. IMPRESSION: Coronary artery disease, status post this coronary artery bypass graft x3 due to chronic renal failure and previous tobacco abuse. He appears to be stable in the ICU. Will continue present supportive care and PT. We will follow while in the ICU. Job ID: [id number]
--- NOTE | 2018-11-09 13:50 | PDOC.PN ---
- Subjective Encounter Start Date: 11/09/18 Encounter Start Time: 13:49 Patient seen and examined, sitting in his chair no complaints. - Objective Resuscitation Status - Order Detail: 11/04/18 23:25 Resuscitation Status Routine Resuscitation Status: FULL: Full Resuscitation Vital Signs & Weight: Vital Signs (12 hours) Temp Pulse Ox 11/09/18 12:00 98.3 F 11/09/18 08:00 99 11/09/18 07:00 98.2 F 11/09/18 04:00 98.9 F Weight Weight 183 lb 3.2 oz Most Recent Monitor Data Heart Rate from ECG 74 NIBP 131/68 NIBP BP-Mean 89 Respiration from ECG 18 SpO2 98 I&O: 11/08/18 11/09/18 11/10/18 06:59 06:59 06:59 Intake Total 3263 1960.7 621 Output Total 1725 1425 555 Balance 1538 535.7 66 Result Diagrams: 11/09/18 04:16 11/09/18 04:16 Additional Labs: Accuchecks 11/09/18 11/09/18 11/09/18 13:09 08:18 04:16 POC Glucose 141 H 183 H 116 H 11/08/18 11/08/18 21:15 13:23 POC Glucose 116 H 119 H Phys Exam - Physical Examination Constitutional: NAD HEENT: PERRLA, moist MMs, sclera anicteric Neck: no nodes, no JVD, supple, full ROM Respiratory: no wheezing, no rales, no rhonchi chest tube in place surgical scar site C/D/I Cardiovascular: no significant murmur, no rub tachycardia Gastrointestinal: soft, non-tender, no distention, positive bowel sounds Musculoskeletal: pulses present, edema present (trace) Dx/Plan (1) DM2 (diabetes mellitus, type 2) Status: Acute Qualifiers: Diabetes mellitus intermediate insulin use: without terminal operator use Diabetes mellitus complication status: with circulatory complication Diabetes mellitus complication detail: with other circulatory complications Qualified Code(s): E11.59 - Type 2 diabetes mellitus with other circulatory complications (2) NSTEMI (non-ST elevated myocardial infarction) Code(s): I21.4 - NON-ST ELEVATION (NSTEMI) MYOCARDIAL INFARCTION Status: Acute Comment: trop up to 30. start heparin gtt due to CKD, follow up on card. echo reviewed. Heprin gtt to stop per cards (3) CKD (chronic kidney disease), stage III Code(s): N18.3 - CHRONIC KIDNEY DISEASE, STAGE 3 (MODERATE) Status: Chronic (4) HLD (hyperlipidemia) Code(s): E78.5 - HYPERLIPIDEMIA, UNSPECIFIED Status: Chronic Qualifiers: Hyperlipidemia type: unspecified Qualified Code(s): E78.5 - Hyperlipidemia , unspecified (5) HTN (hypertension) Code(s): I10 - ESSENTIAL (PRIMARY) HYPERTENSION Status: Chronic Qualifiers: Hypertension type: essential hypertension Qualified Code(s): I10 - Essential (primary) hypertension (6) Hypothyroidism Code(s): E03.9 - HYPOTHYROIDISM, UNSPECIFIED Status: Chronic Qualifiers: Hypothyroidism type: unspecified Qualified Code(s): E03.9 - Hypothyroidism , unspecified - Plan * labs in AM * Cr rising, likely ATN, if above 3 will consult nephrology in AM * no other changes in plan of care * continue current plan * case and plan d/w patient at length, he understood and agreed with this plan.
[2018-11-09] MEDS: Famotidine/PF 20 mg/2ml Vial SLOW IVP SCH (20:44)
--- NOTE | 2018-11-09 21:26 | EKG ---
Test Reason : Blood Pressure : / mmHG Vent. Rate : 060 BPM Atrial Rate : 060 BPM P-R Int : 144 ms QRS Dur : 088 ms QT Int : 414 ms P-R-T Axes : -17 003 034 degrees QTc Int : 414 ms Normal sinus rhythm Inferior infarct , age undetermined Abnormal ECG Confirmed by JEN OMER ([id number]), editor in chief OLE TERRELL ([id number]) on 11/09/2018 9:25:44 PM Referred By: Confirmed By:JEN OMER
--- NOTE | 2018-11-09 21:26 | EKG ---
Test Reason : CP Blood Pressure : / mmHG Vent. Rate : 071 BPM Atrial Rate : 071 BPM P-R Int : 144 ms QRS Dur : 092 ms QT Int : 416 ms P-R-T Axes : -14 037 052 degrees QTc Int : 452 ms Normal sinus rhythm Possible Inferior infarct , age undetermined Abnormal ECG Confirmed by JEN OMER ([id number]), research editor OLE TERRELL ([id number]) on 11/09/2018 9:25:40 PM Referred By: Confirmed By:JEN OMER
[2018-11-10] MEDS: D5 1/2 NS w/20 mEq KCL 1,000 ML IV SCH (04:56)
[2018-11-10] MEDS: Insulin Regular 300 UNITS/3 ML VIAL SC PRN (04:56)
[2018-11-10] MEDS: HYDROcodone/Acetaminophen 5/325 mg Tablet PO PRN ×2 (05:21→19:13)
[2018-11-10 05:34] LABS: #Eosinphils 0.1 thou/uL (0.0-0.7); #Lymphocytes 1.8 thou/uL (1.20-3.40); #Monocytes 0.8 thou/uL (0.11-0.59); #Neutrophils 5.7 thou/uL (1.40-6.50); %Basophils 0.2 % (0.0-1.0); %Eosinophils 1.5 % (0.0-10.0); %Lymphocytes 20.8 % (21.0-51.0); %Neutrophils 67.6 % (42.0-75.0); Hemoglobin 10.2 g/dL (14.0-18.0); Mean Corpuscular HGB CONC 33.1 g/dL (32.0-36.0); Mean Corpuscular Hemoglobin 31.1 pg (27.0-31.0); Platelet Count 147 thou/uL (130-400); RBC Distribution Width 12.6 % (11.5-14.5); Red Blood Cell (RBC) Count 3.28 mill/uL (4.70-6.10); White Blood Cell (WBC) Count 8.5 thou/uL (4.8-10.8)
[2018-11-10] MEDS ORDERED: Acetaminophen 325 MG TAB PO PRN (05:34)
[2018-11-10] MEDS ORDERED: Guaifenesin DM 100-10/5 ML UDCUP PO PRN (05:34)
[2018-11-10] MEDS ORDERED: Mag-Al 1200 mg/1200 mg/30 ML UDCUP PO PRN (05:34)
[2018-11-10] MEDS ORDERED: Fentanyl 100 MCG/2 ML VIAL SLOW IVP PRN (05:34)
[2018-11-10] MEDS ORDERED: Mineral Oil ENEMA PR PRN (05:34)
[2018-11-10] MEDS ORDERED: Bisacodyl 5 MG TAB PO PRN (05:34)
[2018-11-10] MEDS ORDERED: Ondansetron PF 4 MG/2 ML Vial IVP PRN (05:34)
[2018-11-10] MEDS ORDERED: HYDROcodone/Acetaminophen 5/325 mg Tablet PO PRN (05:34)
[2018-11-10] MEDS ORDERED: Bisacodyl 10 MG SUPP PR PRN (05:34)
[2018-11-10] MEDS ORDERED: Nitroglycerin 0.4 MG TAB (25 Tab Bottle) SL PRN (05:34)
[2018-11-10 05:56] LABS: Anion Gap 10 mmol/L (10-20); BUN (Urea Nitrogen) 21 mg/dL (8.4-25.7); Calc. Creatinine Clearance 38 mL/min (70-130); Carbon Dioxide 23 mmol/L (23-31); Chloride 109 mmol/L (98-107); Estimated GFR-MDRD 29; Glucose 157 mg/dL (80-115); Potassium 4.6 mmol/L (3.5-5.1); Sodium 137 mmol/L (136-145)
[2018-11-10] MEDS: Levothyroxine Sodium 75 MCG TAB PO SCH (06:52)
--- NOTE | 2018-11-10 08:31 | RAD ---
PORTABLE SEMIUPRIGHT FRONAL CHEST RADIOGRAPH: DATE: 11/10/2018. COMPARISON: 11/09/2018. HISTORY: Evaluate chest following open heart surgery. FINDINGS: Postsurgical drainage catheter overlies the left hemithorax and right cardiophrenic angle. Stable ri ght-sided vascular catheter and midline sternotomy wires. Stable increased density in the left base suggesting volume loss or infiltrate. IMPRESSION: No significant interval change. POS: TERE
--- NOTE | 2018-11-10 08:44 | PRG ---
DATE OF SERVICE: 11/10/2018 SUBJECTIVE: Rock Estrella remains in the ICU. He is doing quite well. Denies any pain, discomfort, or shortness of breath. Chest x-ray shows a small left pleural effusion. OBJECTIVE: VITAL SIGNS: His blood pressure is 132/74, pulse is 90, sats are room air, and respiratory rate 18. CHEST: Decreased breath sounds. No wheezing. CARDIAC: Normal S1 and S2. No gallops. ABDOMEN: Soft. LABORATORY DATA: Creatinine 2.26. His white count 8000. IMPRESSION: 1. Status post coronary artery bypass graft. 2. Azotemia. 3. Obesity. PLAN: He can be transferred out of the ICU as per Surgery. Continue PT, supportive care. Job ID: [id number]
[2018-11-10] MEDS: Famotidine 20 MG TAB PO SCH (08:53)
[2018-11-10] MEDS: Tamsulosin HCl 0.4 MG CAP PO SCH (08:53)
[2018-11-10] MEDS: Aspirin 325 mg Enteric Coated Tablet PO SCH (08:53)
--- NOTE | 2018-11-10 11:13 | PDOC.PN ---
- Subjective Encounter Start Date: 11/10/18 Encounter Start Time: 11:12 Patient seen and examined, no new issues or complaints. - Objective Resuscitation Status - Order Detail: 11/04/18 23:25 Resuscitation Status Routine Resuscitation Status: FULL: Full Resuscitation Vital Signs & Weight: Vital Signs (12 hours) Temp Pulse Ox 11/10/18 08:00 98.5 F 97 11/10/18 04:00 98.5 F 11/10/18 01:00 98.5 F Weight Weight 183 lb 3.2 oz Most Recent Monitor Data Heart Rate from ECG 100 NIBP 133/74 NIBP BP-Mean 93 Respiration from ECG 35 SpO2 94 I&O: 11/09/18 11/10/18 11/11/18 06:59 06:59 06:59 Intake Total 1960.7 3488 360 Output Total 1425 2705 720 Balance 535.7 783 -360 Result Diagrams: 11/10/18 05:31 11/10/18 05:31 Additional Labs: Accuchecks 11/10/18 11/10/18 11/09/18 04:55 00:58 20:44 POC Glucose 167 H 115 H 159 H 11/09/18 11/09/18 17:28 13:09 POC Glucose 145 H 141 H Phys Exam - Physical Examination Constitutional: NAD HEENT: PERRLA, moist MMs, sclera anicteric, TM's clear Neck: no nodes, no JVD, supple, full ROM Respiratory: no wheezing, no rales, no rhonchi surgical site C/D/I Cardiovascular: RRR, no significant murmur, no rub Gastrointestinal: soft, non-tender, no distention, positive bowel sounds Musculoskeletal: pulses present, edema present (trace) Dx/Plan (1) DM2 (diabetes mellitus, type 2) Status: Acute Qualifiers: Diabetes mellitus senior living insulin use: without terminal makeup operator use Diabetes mellitus complication status: with circulatory complication Diabetes mellitus complication detail: with other circulatory complications Qualified Code(s): E11.59 - Type 2 diabetes mellitus with other circulatory complications (2) NSTEMI (non-ST elevated myocardial infarction) Code(s): I21.4 - NON-ST ELEVATION (NSTEMI) MYOCARDIAL INFARCTION Status: Acute Comment: trop up to 30. start heparin gtt due to CKD, follow up on card. echo reviewed. Heprin gtt to stop per cards (3) CKD (chronic kidney disease), stage III Code(s): N18.3 - CHRONIC KIDNEY DISEASE, STAGE 3 (MODERATE) Status: Chronic (4) HLD (hyperlipidemia) Code(s): E78.5 - HYPERLIPIDEMIA, UNSPECIFIED Status: Chronic Qualifiers: Hyperlipidemia type: unspecified Qualified Code(s): E78.5 - Hyperlipidemia , unspecified (5) HTN (hypertension) Code(s): I10 - ESSENTIAL (PRIMARY) HYPERTENSION Status: Chronic Qualifiers: Hypertension type: essential hypertension Qualified Code(s): I10 - Essential (primary) hypertension (6) Hypothyroidism Code(s): E03.9 - HYPOTHYROIDISM, UNSPECIFIED Status: Chronic Qualifiers: Hypothyroidism type: unspecified Qualified Code(s): E03.9 - Hypothyroidism , unspecified - Plan * Chest tube out * start cardiac rehab * Cr levels trending down, baseline 1.9-2 * transfer out of ICU today * DC plans in 24-48hrs to inpatient rehab or home with [facility] depending on patient' s insurance and clinical status * CVTS also following * continue current medical management * case and plan d/w patient at length, he understood and agreed with this plan.
[2018-11-10] MEDS ORDERED: Atorvastatin Calcium 40 MG TAB PO SCH (21:00)
[2018-11-11] MEDS: Levothyroxine Sodium 75 MCG TAB PO SCH (05:27)
[2018-11-11 06:22] LABS: Anion Gap 11 mmol/L (10-20); BUN (Urea Nitrogen) 22 mg/dL (8.4-25.7); Calc. Creatinine Clearance 42 mL/min (70-130); Calcium 8.9 mg/dL (7.8-10.44); Carbon Dioxide 23 mmol/L (23-31); Chloride 106 mmol/L (98-107); Estimated GFR-MDRD 33; Glucose 121 mg/dL (80-115); Potassium 4.4 mmol/L (3.5-5.1); Sodium 136 mmol/L (136-145)
--- NOTE | 2018-11-11 07:26 | DIS ---
DATE OF ADMISSION: 11/04/2018 DATE OF DISCHARGE: 11/11/2018 DIAGNOSES: 1. Coronary artery disease. 2. Hypertension. 3. Dyslipidemia. 4. Tobacco use. 5. Non-ST elevation myocardial infarction. PROCEDURES: 1. Cardiac catheterization. 2. Coronary artery bypass grafting x3 -. a. Left internal mammary artery to left anterior descending artery. b. Reverse saphenous vein to right coronary artery. c. Reverse saphenous vein to obtuse marginal. DESCRIPTION OF HOSPITAL STAY: Mr. Estrella presented with chest pain to the emergency department. He was found have a non-ST elevation myocardial infarction. Catheterization revealed three-vessel disease. He was taken to the operating room, underwent bypass as above on 11/08. Postoperatively, he has done well. He has had no rhythm disturbances. At the time of discharge, he is ambulatory, tolerating regular diet, having good bowel and bladder function. Incisions are clean and dry, without evidence of infection. DISCHARGE MEDICATIONS: Include; 1. Aspirin 325 mg daily. 2. Norvasc 10 mg daily. 3. Lipitor 40 mg at bedtime. 4. Synthroid 75 mcg daily. 5. Flomax 0.4 mg daily. FOLLOWUP: Follow up was with me in [address] Martinez in a month and Dr. Deleon per his routine schedule. Job ID: [id number]
[2018-11-11] MEDS: Tamsulosin HCl 0.4 MG CAP PO SCH (08:43)
[2018-11-11] MEDS: Aspirin 325 mg Enteric Coated Tablet PO SCH (08:43)
[2018-11-11] MEDS: Famotidine 20 MG TAB PO SCH (08:43)
[2018-11-11] MEDS ORDERED: Furosemide 40 MG TAB PO SCH (09:00)
[2018-11-11 10:22] VITALS: BP 129/77; TEMP 98
[2018-11-11 13:37] LABS: Actual Bicarbonate (HCO3a) 20.4 mEq/L (22-28); Analyzer IN Cardio OR; CO2 Tension 38.7 mmHg (35.0-45.0); Calcium, Ionized 1.14 mmol/L (1.12-1.30); Carboxyhemoglobin (COHb) 0.3 gm% (0.0-3.0); Hemoglobin (Hb) 11.6 g/dL (14.0-18.0); O2 Tension (PaO2) 396.3 mmHg (> 80.0); Potassium - ABG Lab 4.25 mmol/L (3.70-5.30); pH, Arterial 7.34 (7.35-7.45)
[2018-11-11 13:38] LABS: Actual Bicarbonate (HCO3a) 23.5 mEq/L (22-28); Analyzer IN Cardio OR; Base Excess (BEa) -3.9 mEq/L (-2.0 to +3.0); CO2 Tension 55.4 mmHg (35.0-45.0); Calcium, Ionized 1.23 mmol/L (1.12-1.30); Carboxyhemoglobin (COHb) 0.3 gm% (0.0-3.0); Hemoglobin (Hb) 8.9 g/dL (14.0-18.0); O2 Tension (PaO2) 462.3 mmHg (> 80.0); Potassium - ABG Lab 4.74 mmol/L (3.70-5.30)
[2018-11-11 13:38] LABS: Actual Bicarbonate (HCO3a) 24.2 mEq/L (22-28); Analyzer IN Cardio OR; Base Excess (BEa) -2.4 mEq/L (-2.0 to +3.0); CO2 Tension 51.8 mmHg (35.0-45.0); Calcium, Ionized 1.02 mmol/L (1.12-1.30); Carboxyhemoglobin (COHb) 0.2 gm% (0.0-3.0); Hemoglobin (Hb) 8.2 g/dL (14.0-18.0); Potassium - ABG Lab 4.35 mmol/L (3.70-5.30); pH, Arterial 7.29 (7.35-7.45)
[2018-11-11 13:38] LABS: Actual Bicarbonate (HCO3a) 18.9 mEq/L (22-28); Analyzer IN Cardio OR; Base Excess (BEa) -6.1 mEq/L (-2.0 to +3.0); CO2 Tension 35.8 mmHg (35.0-45.0); Calcium, Ionized 1.13 mmol/L (1.12-1.30); Hemoglobin (Hb) 11.2 g/dL (14.0-18.0); O2 Tension (PaO2) 381.1 mmHg (> 80.0); Potassium - ABG Lab 4.19 mmol/L (3.70-5.30); pH, Arterial 7.34 (7.35-7.45)
[2018-11-11 13:39] LABS: Actual Bicarbonate (HCO3a) 24.2 mEq/L (22-28); Analyzer IN Cardio OR; Base Excess (BEa) -0.9 mEq/L (-2.0 to +3.0); CO2 Tension 41.5 mmHg (35.0-45.0); Calcium, Ionized 1.34 mmol/L (1.12-1.30); Carboxyhemoglobin (COHb) 0.3 gm% (0.0-3.0); Hemoglobin (Hb) 8.8 g/dL (14.0-18.0); O2 Tension (PaO2) 394.5 mmHg (> 80.0); Potassium - ABG Lab 4.54 mmol/L (3.70-5.30); pH, Arterial 7.38 (7.35-7.45)
[2018-11-11 14:03] LABS: Puncture Site ALINE
[2018-11-11 14:03] LABS: Puncture Site ALINE
[2018-11-11 14:04] LABS: Puncture Site ALINE
[2018-11-11 14:05] LABS: Puncture Site ALINE
[2018-11-11 14:05] LABS: Puncture Site ALINE; pH, Arterial 7.25 (7.35-7.45)
== END 2018-11-11 11:15 | disposition home or self-care (01) | DRG 234 ==
LOC: ERS 17:16 → CCU 17:38 → OBSVTOIN 20:15 → ERHOLD 20:15 → 2NO 11-05 17:48 → CCU 11-08 06:44
PROVIDERS: ADMIT Emergency Medicine; ATTEND Emergency Medicine
PROC: 4A023N7 Measurement of Cardiac Sampling and Pressure, Left Heart, Percutaneous Approach (ICD-10-PCS; 2018-11-07)
PROC: B2111ZZ Fluoroscopy of Multiple Coronary Arteries using Low Osmolar Contrast (ICD-10-PCS; 2018-11-07)
PROC: B2151ZZ Fluoroscopy of Left Heart using Low Osmolar Contrast (ICD-10-PCS; 2018-11-07)
PROC: 02100Z9 Bypass Coronary Artery, One Artery from Left Internal Mammary, Open Approach (ICD-10-PCS; principal; 2018-11-08)
PROC: 06BP0ZZ Excision of Right Saphenous Vein, Open Approach (ICD-10-PCS; 2018-11-08)
PROC: 021109W Bypass Coronary Artery, Two Arteries from Aorta with Autologous Venous Tissue, Open Approach (ICD-10-PCS; 2018-11-08)
PROC: 5A1221Z Performance of Cardiac Output, Continuous (ICD-10-PCS; 2018-11-08)
DX: I21.4 Non-ST elevation (NSTEMI) myocardial infarction (principal); N18.3 Chronic kidney disease, stage 3 (moderate); I12.9 Hypertensive chronic kidney disease with stage 1 through stage 4 chronic kidney disease, or unspecified chronic kidney disease; E11.22 Type 2 diabetes mellitus with diabetic chronic kidney disease; R35.0 Frequency of micturition; R35.1 Nocturia; Z79.899 Other long term (current) drug therapy; E11.65 Type 2 diabetes mellitus with hyperglycemia; E78.5 Hyperlipidemia, unspecified; E03.9 Hypothyroidism, unspecified; E66.9 Obesity, unspecified; Z87.891 Personal history of nicotine dependence; I25.110 Atherosclerotic heart disease of native coronary artery with unstable angina pectoris
CPT/HCPCS: 36415; 36416; 36430; 71045; 76942; 80048; 80053; 80061; 82553; 82805; 83690; 84484; 85025; 85610; 85730; 86850; 86900; 86901; 93005; 93010; 93306; 93458; 93798; 94150; 96361; 96365; 96366; 96374; 99152; C1769; J0153; J0670; J1100; J1642; J1644; J1815; J1885; J2001; J2150; J2250; J2405; J2440; J2720; J3010; J3370; J3475; J3480; J7050; P9045; P9047; S0017; S0028